=== PATIENT | male | born 1975 | race Caucasian/White ===

== ENCOUNTER 2022-08-01 18:42 | Emergency (ER) | payer OTHER ==
[2022-08-01 18:55] VITALS: RESP 18; TEMP 98.7
[2022-08-01] MEDS ORDERED: SODIUM CHLORIDE 0.9% 1,000 ML IV STA (18:59)
[2022-08-01] MEDS ORDERED: SODIUM CHLORIDE 0.9% 1,000 ML with THIAMINE 100 MG, FOLIC ACID 1 MG IV ONE ×3 (19:04)
[2022-08-01 19:12] LABS: Basophils % (A) 0 %; Eosinophils % (A) 0 %; HCT 23.1 % (39.0-53.0); Hypochromasia Slight; Lymphocytes # (A) 0.5 k/uL (1.0-4.8); Lymphocytes % (A) 7 %; MCH 40.8 pg (25.0-35.0); MCHC 34.7 g/dL (31.0-37.0); MCV 117.6 fL (80.0-100.0); Macrocytosis Marked; Mean Platelet Volume 8.6; Monocytes # (A) 0.5 k/uL (0-1.0); Monocytes % (A) 7 %; Neutrophils # (A) 5.8 k/uL (1.3-7.7); Neutrophils % (A) 82 %; Platelet Count 291 k/uL (150-450); RBC 1.96 m/uL (4.30-5.90); RDW 15.4 % (11.5-15.5)
[2022-08-01 19:25] LABS: Poikilocytosis (M) Present
[2022-08-01 19:26] LABS: Anisocytosis (M) Present; Polychromasia Present; Target Cells Present
[2022-08-01 19:27] LABS: ALT 74 U/L (4-49); AST 306 U/L (17-59); African American GFR (CKD) >90 (>60 ml/min/1.73 sqM); Albumin 2.5 g/dL (3.5-5.0); Alcohol <10 mg/dL; Alkaline Phosphatase 392 U/L (38-126); Anion Gap 15 mmol/L; Blood Urea Nitrogen 2 mg/dL (9-20); Calcium 7.3 mg/dL (8.4-10.2); Carbon Dioxide 21 mmol/L (22-30); Chloride 88 mmol/L (98-107); Glucose 94 mg/dL (74-99); Lipase 247 U/L (23-300); Non-African American GFR(CKD) >90 (>60 ml/min/1.73 sqM); Sodium 124 mmol/L (137-145); Total Protein 5.8 g/dL (6.3-8.2)
[2022-08-01] MEDS ORDERED: LORazepam 0.5 MG TAB PO PRN (19:40)
[2022-08-01] MEDS ORDERED: LORazepam 1 MG TAB PO PRN ×3 (19:40)
[2022-08-01 19:42] LABS: Potassium 2.3 mmol/L (3.5-5.1); Total Bilirubin 19.7 mg/dL (0.2-1.3)
[2022-08-01] MEDS ORDERED: POTASSIUM CHLORIDE ER 20 MEQ TAB.ER PO STA (19:58)
[2022-08-01 20:48] VITALS: BP 108/59
[2022-08-01 20:56] VITALS: PULSE 105
--- NOTE | 2022-08-01 21:00 | ED ---
Alcohol HPI - General Chief Complaint: Alcohol Stated Complaint: jaundice Time Seen by Provider: 08/01/22 18:52 Source: patient, EMS Mode of arrival: EMS Limitations: no limitations, altered mental status - History of Present Illness Initial Comments: Patient is a 46-year-old male with a history of alcohol use disorder who presents to the emergency department for evaluation of altered mental status. According to EMS patient called the police stating his house was broken into and there were 6 burglars in his house. When police arrived they apparently found this to be a hallucination and in combination with jaundice, sent the patient to the emergency department. Patient reports drinking a fifth of liquor a day, last drink early this afternoon. He denies history of hepatitis, IV drug use, exposure to blood and other bodily fluids. He denies fever, chills, abdominal pain, nausea, vomiting, diarrhea. Unsure of urine and stool color. Patient has no pain or complaints. - Related Data Previous Rx's Medication Instructions Recorded Potassium Chloride ER [K-Dur 20] 20 meq PO DAILY #14 tab 08/01/22 Allergies Allergy/AdvReac Type Severity Reaction Status Date / Time dog dander Allergy Cough Verified 08/01/22 20:12 Review of Systems ROS Statement: Those systems with pertinent positive or pertinent negative responses have been documented in the HPI. ROS Other: All systems not noted in ROS Statement are negative. Past Medical History Additional Past Medical History / Comment(s): Hernia, alcoholic, liver cirhosis History of Any Multi-Drug Resistant Organisms: None Reported Past Surgical History: Hernia Repair Past Psychological History: Anxiety, Depression Smoking Status: Current every day smoker Past Alcohol Use History: Abuse, Daily, Heavy Past Drug Use History: None Reported General Exam Limitations: no limitations, altered mental status General appearance: alert, in no apparent distress Head exam: Present: atraumatic, normocephalic, normal inspection Eye exam: Present: normal appearance, PERRL, EOMI, scleral icterus. Absent: conjunctival injection, periorbital swelling ENT exam: Present: other (tongue fasciculations) Respiratory exam: Present: normal lung sounds bilaterally. Absent: respiratory distress, wheezes, rales, rhonchi, stridor Cardiovascular Exam: Present: regular rate, normal rhythm, normal heart sounds. Absent: systolic murmur, diastolic murmur, rubs, gallop, clicks GI/Abdominal exam: Present: soft, normal bowel sounds. Absent: distended, tend erness, guarding, rebound, rigid Extremities exam: Present: other (significant hand tremors) Neurological exam: Present: alert, oriented X3, CN II-XII intact Psychiatric exam: Present: normal affect, normal mood Skin exam: Present: warm, dry, intact. Absent: normal color (severe jaundice ), rash Course Vital Signs 08/01/22 08/01/22 08/01/22 18:49 20:25 20:47 Temperature 98.7 F Pulse Rate 90 105 H Respiratory 18 18 Rate Blood Pressure 109/80 108/59 O2 Sat by Pulse 99 Oximetry Medical Decision Making - Medical Decision Making This is a 46-year-old male presenting or altered mental status and jaundice. Patient alert and oriented 3. No active hallucinations during my evaluation. Patient severely jaundiced with scleral icterus. No abdominal tenderness. Patient in alcohol withdrawal at significant bilateral hand tremors and tongue fasciculations. Vitals are within acceptable limits. Hemoglobin is low at 8.0, no previous for comparison. Potassium critically low at 2.3. Total bilirubin is significantly high at 19.7. Liver function enzymes are elevated, AST of 306, ALT of 74, alk phos at 392. Serum alcohol is 0. Urinalysis is dark brown in color and reveals 4+ bilirubin. CIWA score is 8. Ativan given. Patient given banana bag. Potassium replenished. Case discussed with Dr. Olsen who declined admission to 2 GI services. Discussed transfer with patient in detail. Patient declines. States he has to go home. I urged patient to stay, discussing risks of hypokalemia and acute liver failure. Patient aware risks and adamant on going home. Patient signed AMA form. He will be discharged with potassium and GI referral. Dr. Benedict is my attending. - Lab Data Result diagrams: 08/01/22 19:04 08/01/22 19:04 Lab Results 08/01/22 08/01/22 08/01/22 Range/Units 19:04 19:04 19:04 WBC 7.0 (3.8-10.6) k/uL RBC 1.96 L (4.30-5.90) m/uL Hgb 8.0 L (13.0-17.5) gm/dL Hct 23.1 L (39.0-53.0) % MCV 117.6 H (80.0-100.0) fL MCH 40.8 H (25.0-35.0) pg MCHC 34.7 (31.0-37.0) g/dL RDW 15.4 (11.5-15.5) % Plt Count 291 (150-450) k/uL MPV 8.6 Neutrophils % 82 % Lymphocytes % 7 % Monocytes % 7 % Eosinophils % 0 % Basophils % 0 % Neutrophils # 5.8 (1.3-7.7) k/uL Lymphocytes # 0.5 L (1.0-4.8) k/uL Monocytes # 0.5 (0-1.0) k/uL Eosinophils # 0.0 (0-0.7) k/uL Basophils # 0.0 (0-0.2) k/uL Polychromasia Present Hypochromasia Slight Poikilocytosis (manual Present Anisocytosis (manual) Present Macrocytosis Marked A Target Cells Present Sodium 124 L (137-145) mmol/L Potassium 2.3 L* (3.5-5.1) mmol/L Chloride 88 L (98-107) mmol/L Carbon Dioxide 21 L (22-30) mmol/L Anion Gap 15 mmol/L BUN 2 L (9-20) mg/dL Creatinine 0.69 (0.66-1.25) mg/dL Est GFR (CKD-EPI)AfAm >90 (>60 ml/min/1.73 sqM) Est GFR (CKD-EPI)NonAf >90 (>60 ml/min/1.73 sqM) Glucose 94 (74-99) mg/dL Calcium 7.3 L (8.4-10.2) mg/dL Total Bilirubin 19.7 H* (0.2-1.3) mg/dL AST 306 H (17-59) U/L ALT 74 H (4-49) U/L Alkaline Phosphatase 392 H (38-126) U/L Ammonia 27 (<30) umol/L Total Protein 5.8 L (6.3-8.2) g/dL Albumin 2.5 L (3.5-5.0) g/dL Lipase 247 (23-300) U/L Urine Color Urine Appearance (Clear) Urine pH (5.0-8.0) Ur Specific [place] (1.001-1.035) Urine Protein (Negative) Urine Glucose (UA) (Negative) Urine Ketones (Negative) Urine Blood (Negative) Urine Nitrite (Negative) Urine Bilirubin (Negative) Urine Urobilinogen (<2.0) mg/dL Ur Leukocyte Esterase (Negative) Urine RBC (0-5) /hpf Urine WBC (0-5) /hpf Ur Squamous Epith Cells (0-4) /hpf Ur Renal Epithelial Cell (0) /hpf Urine Bacteria (None) /hpf Hyaline Casts (0-2) /lpf Urine Mucus (None) /hpf Ur Oval Fat Bodies (None) /hpf Urine Opiates Screen (NotDetected) Ur Oxycodone Screen (NotDetected) Urine Methadone Screen (NotDetected) Ur Propoxyphene Screen (NotDetected) Ur Barbiturates Screen (NotDetected) U Tricyclic Antidepress (NotDetected) Ur Phencyclidine Scrn (NotDetected) Ur Amphetamines Screen (NotDetected) U Methamphetamines Scrn (NotDetected) U Benzodiazepines Scrn (NotDetected) Urine Cocaine Screen (NotDetected) U Marijuana (THC) Screen (NotDetected) Serum Alcohol <10 mg/dL 08/01/22 Range/Units 20:30 WBC (3.8-10.6) k/uL RBC (4.30-5.90) m/uL Hgb (13.0-17.5) gm/dL Hct (39.0-53.0) % MCV (80.0-100.0) fL MCH (25.0-35.0) pg MCHC (31.0-37.0) g/dL RDW (11.5-15.5) % Plt Count (150-450) k/uL MPV Neutrophils % % Lymphocytes % % Monocytes % % Eosinophils % % Basophils % % Neutrophils # (1.3-7.7) k/uL Lymphocytes # (1.0-4.8) k/uL Monocytes # (0-1.0) k/uL Eosinophils # (0-0.7) k/uL Basophils # (0-0.2) k/uL Polychromasia Hypochromasia Poikilocytosis (manual Anisocytosis (manual) Macrocytosis Target Cells Sodium (137-145) mmol/L Potassium (3.5-5.1) mmol/L Chloride (98-107) mmol/L Carbon Dioxide (22-30) mmol/L Anion Gap mmol/L BUN (9-20) mg/dL Creatinine (0.66-1.25) mg/dL Est GFR (CKD-EPI)AfAm (>60 ml/min/1.73 sqM) Est GFR (CKD-EPI)NonAf (>60 ml/min/1.73 sqM) Glucose (74-99) mg/dL Calcium (8.4-10.2) mg/dL Total Bilirubin (0.2-1.3) mg/dL AST (17-59) U/L ALT (4-49) U/L Alkaline Phosphatase (38-126) U/L Ammonia (<30) umol/L Total Protein (6.3-8.2) g/dL Albumin (3.5-5.0) g/dL Lipase (23-300) U/L Urine Color Dark Brown Urine Appearance Cloudy (Clear) Urine pH 6.5 (5.0-8.0) Ur Specific [place] 1.010 (1.001-1.035) Urine Protein Trace H (Negative) Urine Glucose (UA) Negative (Negative) Urine Ketones Negative (Negative) Urine Blood Negative (Negative) Urine Nitrite Negative (Negative) Urine Bilirubin 4+ H (Negative) Urine Urobilinogen 3.0 (<2.0) mg/dL Ur Leukocyte Esterase Negative (Negative) Urine RBC 1 (0-5) /hpf Urine WBC 16 H (0-5) /hpf Ur Squamous Epith Cells 3 (0-4) /hpf Ur Renal Epithelial Cell 7 (0) /hpf Urine Bacteria Rare H (None) /hpf Hyaline Casts 23 H (0-2) /lpf Urine Mucus Rare H (None) /hpf Ur Oval Fat Bodies Rare H (None) /hpf Urine Opiates Screen Not Detected (NotDetected) Ur Oxycodone Screen Not Detected (NotDetected) Urine Methadone Screen Not Detected (NotDetected) Ur Propoxyphene Screen Not Detected (NotDetected) Ur Barbiturates Screen Not Detected (NotDetected) U Tricyclic Antidepress Not Detected (NotDetected) Ur Phencyclidine Scrn Not Detected (NotDetected) Ur Amphetamines Screen Not Detected (NotDetected) U Methamphetamines Scrn Not Detected (NotDetected) U Benzodiazepines Scrn Not Detected (NotDetected) Urine Cocaine Screen Not Detected (NotDetected) U Marijuana (THC) Screen Not Detected (NotDetected) Serum Alcohol mg/dL Disposition Clinical Impression: Jaundice, Alcohol use disorder, Alcohol withdrawal, Confusion, Hypokalemia Disposition: Left Against Medical Advice Condition: Poor Instructions (If sedation given, give patient instructions): Acute Liver Failure (DC), Hypokalemia (ED), Alcohol Withdrawal (ED) Additional Instructions: You are leaving against Medical advice. Take medication as directed. Follow-up with GI specialist in 1-2 days. It is very important to stop drinking alcohol as it is causing extreme liver dysfunction. I referred you to [facility] who can help you quit at this can be difficult task on your own. Return to the emergency department if you experience new, concerning, or worsening symptoms. Prescriptions: Potassium Chloride ER [K-Dur 20] 20 meq PO DAILY #14 tab Is patient prescribed a controlled substance at d/c from ED?: No Referrals: None,Stated [Primary Care Provider] - 1-2 days Deandra Everett MD [STAFF PHYSICIAN] - 1-2 days Time of Disposition: 21:01
[2022-08-01 21:24] LABS: Appearance,Urine Cloudy (Clear); Bacteria,Urine Rare /hpf; Bilirubin,Urine 4+ (Negative); Blood,Urine Negative (Negative); Color,Urine Dark Brown; Glucose,Urine (UA) Negative (Negative); Hyaline Casts,Urine 23 /lpf (0-2); Ketones,Urine Negative (Negative); Leukocyte Esterase,Urine Negative (Negative); Mucus,Urine Rare /hpf; Nitrite,Urine Negative (Negative); Oval Fat Bodies,Urine Rare /hpf; PH, Urine 6.5 (5.0-8.0); Protein,Urine Trace (Negative); RBC,Urine 1 /hpf (0-5); Renal Epithelial Cells,Urine 7 /hpf (0); Squamous Epithelial Cell,Urine 3 /hpf (0-4); WBC,Urine 16 /hpf (0-5)
[2022-08-01 21:27] LABS: Amphetamine Screen,Urine Not Detected (NotDetected); Barbiturate Screen,Urine Not Detected (NotDetected); Benzodiazepines Screen,Urine Not Detected (NotDetected); Cocaine Screen,Urine Not Detected (NotDetected); Methadone Screen, Urine Not Detected (NotDetected); Opiate Screen,Urine Not Detected (NotDetected); Oxycodone Screen, Urine Not Detected (NotDetected); Phencyclidine Screen,Urine Not Detected (NotDetected); Tricyclic Antidepressant,Urine Not Detected (NotDetected); Urn Cannabinoid Scrn Not Detected (NotDetected)
== END 2022-08-01 20:33 | disposition left against medical advice (07) ==
LOC: EC 18:42
DX: R17 Unspecified jaundice (principal); F10.10 Alcohol abuse, uncomplicated; J30.81 Allergic rhinitis due to animal (cat) (dog) hair and dander; R41.0 Disorientation, unspecified; E87.6 Hypokalemia; Z53.29 Procedure and treatment not carried out because of patient's decision for other reasons; F41.9 Anxiety disorder, unspecified; F32.A Depression, unspecified; F17.200 Nicotine dependence, unspecified, uncomplicated; Z79.899 Other long term (current) drug therapy
CPT/HCPCS: 36415; 80053; 80306; 80320; 81001; 82140; 83690; 85025; 87086; 96360; 99285

== ENCOUNTER 2022-08-02 16:48 | Inpatient (IN) | payer OTHER ==
[2022-08-02] MEDS ORDERED: SODIUM CHLORIDE 0.9% 500 ML 500 ML IV ONE (16:57)
[2022-08-02] MEDS ORDERED: LORazepam 2 MG/ML INJ IV STA (17:37)
[2022-08-02 18:02] LABS: Basophils % (A) 0 %; Eosinophils % (A) 0 %; HCT 22.5 % (39.0-53.0); HGB 7.7 gm/dL (13.0-17.5); Hypochromasia Slight; Lymphocytes # (A) 0.6 k/uL (1.0-4.8); Lymphocytes % (A) 7 %; MCH 40.5 pg (25.0-35.0); MCV 119.4 fL (80.0-100.0); Mean Platelet Volume 9.1; Monocytes # (A) 0.6 k/uL (0-1.0); Monocytes % (A) 7 %; Neutrophils # (A) 6.7 k/uL (1.3-7.7); Neutrophils % (A) 81 %; Platelet Count 315 k/uL (150-450); RBC 1.89 m/uL (4.30-5.90); RDW 15.9 % (11.5-15.5); WBC 8.3 k/uL (3.8-10.6)
[2022-08-02 18:03] LABS: Macrocytosis Marked
[2022-08-02 18:04] LABS: ALT 80 U/L (4-49); AST 331 U/L (17-59); African American GFR (CKD) >90 (>60 ml/min/1.73 sqM); Albumin 2.5 g/dL (3.5-5.0); Alkaline Phosphatase 371 U/L (38-126); Anion Gap 15 mmol/L; Blood Urea Nitrogen 9 mg/dL (9-20); Calcium 7.4 mg/dL (8.4-10.2); Carbon Dioxide 21 mmol/L (22-30); Chloride 90 mmol/L (98-107); Non-African American GFR(CKD) 88 (>60 ml/min/1.73 sqM); Potassium 2.9 mmol/L (3.5-5.1); Sodium 126 mmol/L (137-145)
[2022-08-02 18:11] LABS: Glucose 48 mg/dL (74-99); Total Bilirubin 21.4 mg/dL (0.2-1.3); Total Protein 5.9 g/dL (6.3-8.2)
[2022-08-02] MEDS ORDERED: DEXTROSE 50% SYRINGE 50 ML IVP STA (18:15)
[2022-08-02 18:16] LABS: INR 2.1 (<1.2); Partial Thromboplastin Time 42.4 sec (22.0-30.0); Prothrombin Time 20.7 sec (9.0-12.0)
[2022-08-02 18:35] LABS: Glucose,Whole Blood 160 mg/dL (70-110)
--- NOTE | 2022-08-02 19:06 | ED ---
Altered Mental Status HPI - General Chief Complaint: Altered Mental Status Stated Complaint: AMS, jaundice Time Seen by Provider: 08/02/22 16:50 Source: EMS Mode of arrival: EMS Limitations: altered mental status - History of Present Illness Initial Comments: 's patient is a 46-year-old man brought by ambulance to have evaluation for altered mental status. Ambulance reportedly called by friends. Patient not able to give any history. He had been seen here at the emergency department yesterday and reportedly signed out AGAINST MEDICAL ADVICE. Patient's reported to have history of heavy alcohol use and reported yesterday to have been found with evidence of liver failure. On arrival, patient is unable to give any useful history as he does appear to be delirious. MD Complaint: altered mental status -: days(s) Severity: severe Consistency of Symptoms: unknown - Related Data Previous Rx's Medication Instructions Recorded Potassium Chloride ER [K-Dur 20] 20 meq PO DAILY #14 tab 08/01/22 Folic Acid 1 mg PO DAILY #30 tab 08/05/22 Lactulose [Cephulac] 10 gm PO TID #30 ml 08/05/22 Multivitamins, Thera [Multivitamin 1 each PO DAILY #30 tab 08/05/22 (formulary)] Pantoprazole [Protonix] 40 mg PO DAILY #30 tab 08/05/22 Thiamine [Vitamin B-1] 100 mg PO DAILY #30 tab 08/05/22 prednisoLONE ORAL 15MG/5ML LUIS 40 mg PO DAILY 26 Days #350 ml 08/05/22 [Prelone] Allergies Allergy/AdvReac Type Severity Reaction Status Date / Time dog dander Allergy Cough Verified 08/02/22 17:59 Review of Systems ROS Statement: Those systems with pertinent positive or pertinent negative responses have been documented in the HPI. ROS Other: All systems not noted in ROS Statement are negative. Limitations: ROS unobtainable due to patients medical condition Past Medical History Additional Past Medical History / Comment(s): Hernia, alcoholic, liver cirhosis History of Any Multi-Drug Resistant Organisms: None Reported Past Surgical History: Hernia Repair Past Psychological History: Anxiety, Depression Smoking Status: Current every day smoker Past Alcohol Use History: Abuse, Daily, Heavy Past Drug Use History: None Reported General Exam Limitations: altered mental status General appearance: alert, anxious Head exam: Present: atraumatic, normocephalic Eye exam: Present: normal appearance, PERRL, EOMI, scleral icterus. Absent: conjunctival injection, nystagmus ENT exam: Present: normal oropharynx Neck exam: Present: normal inspection, full ROM. Absent: tenderness, meningismus Respiratory exam: Present: normal lung sounds bilaterally. Absent: respiratory distress, wheezes, rales, rhonchi, stridor, accessory muscle use Cardiovascular Exam: Present: regular rate, normal rhythm, normal heart sounds. Absent: systolic murmur, diastolic murmur, rubs, gallop GI/Abdominal exam: Present: soft. Absent: distended, tenderness, guarding, rebound, rigid, mass Extremities exam: Present: normal inspection, normal capillary refill. Absent: pedal edema, calf tenderness Back exam: Present: normal inspection. Absent: CVA tenderness (R), CVA tenderness (L) Neurological exam: Present: altered, CN II-XII intact. Absent: motor sensory deficit Skin exam: Present: warm, dry, intact, other (Jaundice) Course Vital Signs 08/02/22 08/02/22 08/02/22 17:04 17:07 18:00 Temperature 98.1 F Pulse Rate 93 Pulse Rate [ Environmental Analyst ] Pulse Rate [ Pulse Oximetery ] Respiratory 20 20 18 Rate Blood Pressure 88/70 88/70 94/70 Blood Pressure [Left Arm] O2 Sat by Pulse 98 86 L Oximetry 08/02/22 08/02/22 08/02/22 18:30 19:52 22:13 Temperature Pulse Rate 88 88 73 Pulse Rate [ Environmental Analyst ] Pulse Rate [ Pulse Oximetery ] Respiratory 18 22 18 Rate Blood Pressure 116/106 117/82 100/69 Blood Pressure [Left Arm] O2 Sat by Pulse 95 98 95 Oximetry 08/03/22 08/03/22 08/03/22 00:46 03:36 05:44 Temperature 98.5 F Pulse Rate 85 78 86 Pulse Rate [ Environmental Analyst ] Pulse Rate [ Pulse Oximetery ] Respiratory 22 16 15 Rate Blood Pressure 155/86 111/77 98/56 Blood Pressure [Left Arm] O2 Sat by Pulse 95 95 98 Oximetry 08/03/22 08/03/22 08/03/22 06:29 07:42 09:50 Temperature 98.4 F Pulse Rate 86 83 74 Pulse Rate [ Environmental Analyst ] Pulse Rate [ Pulse Oximetery ] Respiratory 18 18 18 Rate Blood Pressure 100/62 93/65 101/68 Blood Pressure [Left Arm] O2 Sat by Pulse 96 95 96 Oximetry 08/03/22 08/03/22 08/03/22 12:00 15:46 19:04 Temperature 98.4 F Pulse Rate 88 Pulse Rate [ 77 Environmental Analyst ] Pulse Rate [ 101 H Pulse Oximetery ] Respiratory 18 16 20 Rate Blood Pressure 108/62 Blood Pressure 103/78 100/69 [Left Arm] O2 Sat by Pulse 96 94 L Oximetry Medical Decision Making - Medical Decision Making Patient's 46-year-old man brought in for altered mental status. On arrival patient found to be hypotensive, given IV fluids. Patient also hypoglycemic given dextrose. Patient's vital signs have improved such that he may not require ICU admission. Patient is more alert however still delirious at times. We'll admit with CIWA protocol. Patient prognosis very guarded. - Lab Data Result diagrams: 08/04/22 10:08/05/22 07:49 Lab Results 08/02/22 08/02/22 08/02/22 Range/Units 17:00 17:00 17:00 WBC 8.3 (3.8-10.6) k/uL RBC 1.89 L (4.30-5.90) m/uL Hgb 7.7 L (13.0-17.5) gm/dL Hct 22.5 L (39.0-53.0) % MCV 119.4 H (80.0-100.0) fL MCH 40.5 H (25.0-35.0) pg MCHC 34.0 (31.0-37.0) g/dL RDW 15.9 H (11.5-15.5) % Plt Count 315 (150-450) k/uL MPV 9.1 Neutrophils % 81 % Lymphocytes % 7 % Monocytes % 7 % Eosinophils % 0 % Basophils % 0 % Neutrophils # 6.7 (1.3-7.7) k/uL Lymphocytes # 0.6 L (1.0-4.8) k/uL Monocytes # 0.6 (0-1.0) k/uL Eosinophils # 0.0 (0-0.7) k/uL Basophils # 0.0 (0-0.2) k/uL Hypochromasia Slight Macrocytosis Marked A PT 20.7 H (9.0-12.0) sec INR 2.1 H (<1.2) APTT 42.4 H (22.0-30.0) sec Sodium 126 L (137-145) mmol/L Potassium 2.9 L (3.5-5.1) mmol/L Chloride 90 L (98-107) mmol/L Carbon Dioxide 21 L (22-30) mmol/L Anion Gap 15 mmol/L BUN 9 (9-20) mg/dL Creatinine 1.03 (0.66-1.25) mg/dL Est GFR (CKD-EPI)AfAm >90 (>60 ml/min/1.73 sqM) Est GFR (CKD-EPI)NonAf 88 (>60 ml/min/1.73 sqM) Glucose 48 L* (74-99) mg/dL POC Glucose (mg/dL) (70-110) mg/dL POC Glu Manager Pmo ID Calcium 7.4 L (8.4-10.2) mg/dL Total Bilirubin 21.4 H* (0.2-1.3) mg/dL AST 331 H (17-59) U/L ALT 80 H (4-49) U/L Alkaline Phosphatase 371 H (38-126) U/L Ammonia (<30) umol/L Troponin I (0.000-0.034) ng/mL Total Protein 5.9 L (6.3-8.2) g/dL Albumin 2.5 L (3.5-5.0) g/dL Urine Color Urine Appearance (Clear) Urine pH (5.0-8.0) Ur Specific [place] (1.001-1.035) Urine Protein (Negative) Urine Glucose (UA) (Negative) Urine Ketones (Negative) Urine Blood (Negative) Urine Nitrite (Negative) Urine Bilirubin (Negative) Urine Urobilinogen (<2.0) mg/dL Ur Leukocyte Esterase (Negative) Urine Opiates Screen (NotDetected) Ur Oxycodone Screen (NotDetected) Urine Methadone Screen (NotDetected) Ur Propoxyphene Screen (NotDetected) Ur Barbiturates Screen (NotDetected) U Tricyclic Antidepress (NotDetected) Ur Phencyclidine Scrn (NotDetected) Ur Amphetamines Screen (NotDetected) U Methamphetamines Scrn (NotDetected) U Benzodiazepines Scrn (NotDetected) Urine Cocaine Screen (NotDetected) U Marijuana (THC) Screen (NotDetected) Serum Alcohol mg/dL 08/02/22 08/02/22 08/02/22 Range/Units 17:00 17:00 17:00 WBC (3.8-10.6) k/uL RBC (4.30-5.90) m/uL Hgb (13.0-17.5) gm/dL Hct (39.0-53.0) % MCV (80.0-100.0) fL MCH (25.0-35.0) pg MCHC (31.0-37.0) g/dL RDW (11.5-15.5) % Plt Count (150-450) k/uL MPV Neutrophils % % Lymphocytes % % Monocytes % % Eosinophils % % Basophils % % Neutrophils # (1.3-7.7) k/uL Lymphocytes # (1.0-4.8) k/uL Monocytes # (0-1.0) k/uL Eosinophils # (0-0.7) k/uL Basophils # (0-0.2) k/uL Hypochromasia Macrocytosis PT (9.0-12.0) sec INR (<1.2) APTT (22.0-30.0) sec Sodium (137-145) mmol/L Potassium (3.5-5.1) mmol/L Chloride (98-107) mmol/L Carbon Dioxide (22-30) mmol/L Anion Gap mmol/L BUN (9-20) mg/dL Creatinine (0.66-1.25) mg/dL Est GFR (CKD-EPI)AfAm (>60 ml/min/1.73 sqM) Est GFR (CKD-EPI)NonAf (>60 ml/min/1.73 sqM) Glucose (74-99) mg/dL POC Glucose (mg/dL) (70-110) mg/dL POC Glu Manager Pmo ID Calcium (8.4-10.2) mg/dL Total Bilirubin (0.2-1.3) mg/dL AST (17-59) U/L ALT (4-49) U/L Alkaline Phosphatase (38-126) U/L Ammonia 34 H (<30) umol/L Troponin I <0.012 (0.000-0.034) ng/mL Total Protein (6.3-8.2) g/dL Albumin (3.5-5.0) g/dL Urine Color Urine Appearance (Clear) Urine pH (5.0-8.0) Ur Specific [place] (1.001-1.035) Urine Protein (Negative) Urine Glucose (UA) (Negative) Urine Ketones (Negative) Urine Blood (Negative) Urine Nitrite (Negative) Urine Bilirubin (Negative) Urine Urobilinogen (<2.0) mg/dL Ur Leukocyte Esterase (Negative) Urine Opiates Screen (NotDetected) Ur Oxycodone Screen (NotDetected) Urine Methadone Screen (NotDetected) Ur Propoxyphene Screen (NotDetected) Ur Barbiturates Screen (NotDetected) U Tricyclic Antidepress (NotDetected) Ur Phencyclidine Scrn (NotDetected) Ur Amphetamines Screen (NotDetected) U Methamphetamines Scrn (NotDetected) U Benzodiazepines Scrn (NotDetected) Urine Cocaine Screen (NotDetected) U Marijuana (THC) Screen (NotDetected) Serum Alcohol <10 mg/dL 08/02/22 08/02/22 08/02/22 Range/Units 18:34 19:51 21:30 WBC (3.8-10.6) k/uL RBC (4.30-5.90) m/uL Hgb (13.0-17.5) gm/dL Hct (39.0-53.0) % MCV (80.0-100.0) fL MCH (25.0-35.0) pg MCHC (31.0-37.0) g/dL RDW (11.5-15.5) % Plt Count (150-450) k/uL MPV Neutrophils % % Lymphocytes % % Monocytes % % Eosinophils % % Basophils % % Neutrophils # (1.3-7.7) k/uL Lymphocytes # (1.0-4.8) k/uL Monocytes # (0-1.0) k/uL Eosinophils # (0-0.7) k/uL Basophils # (0-0.2) k/uL Hypochromasia Macrocytosis PT (9.0-12.0) sec INR (<1.2) APTT (22.0-30.0) sec Sodium (137-145) mmol/L Potassium (3.5-5.1) mmol/L Chloride (98-107) mmol/L Carbon Dioxide (22-30) mmol/L Anion Gap mmol/L BUN (9-20) mg/dL Creatinine (0.66-1.25) mg/dL Est GFR (CKD-EPI)AfAm (>60 ml/min/1.73 sqM) Est GFR (CKD-EPI)NonAf (>60 ml/min/1.73 sqM) Glucose (74-99) mg/dL POC Glucose (mg/dL) 160 H 89 (70-110) mg/dL POC Glu Manager Pmo ID Emerson Guerrero Kaitlyn Calcium (8.4-10.2) mg/dL Total Bilirubin (0.2-1.3) mg/dL AST (17-59) U/L ALT (4-49) U/L Alkaline Phosphatase (38-126) U/L Ammonia (<30) umol/L Troponin I (0.000-0.034) ng/mL Total Protein (6.3-8.2) g/dL Albumin (3.5-5.0) g/dL Urine Color Dark Yellow Urine Appearance Clear (Clear) Urine pH 6.5 (5.0-8.0) Ur Specific [place] 1.003 (1.001-1.035) Urine Protein Negative (Negative) Urine Glucose (UA) Negative (Negative) Urine Ketones Negative (Negative) Urine Blood Negative (Negative) Urine Nitrite Negative (Negative) Urine Bilirubin 3+ H (Negative) Urine Urobilinogen <2.0 (<2.0) mg/dL Ur Leukocyte Esterase Negative (Negative) Urine Opiates Screen Not Detected (NotDetected) Ur Oxycodone Screen Not Detected (NotDetected) Urine Methadone Screen Not Detected (NotDetected) Ur Propoxyphene Screen Not Detected (NotDetected) Ur Barbiturates Screen Not Detected (NotDetected) U Tricyclic Antidepress Not Detected (NotDetected) Ur Phencyclidine Scrn Not Detected (NotDetected) Ur Amphetamines Screen Not Detected (NotDetected) U Methamphetamines Scrn Not Detected (NotDetected) U Benzodiazepines Scrn Not Detected (NotDetected) Urine Cocaine Screen Not Detected (NotDetected) U Marijuana (THC) Screen Not Detected (NotDetected) Serum Alcohol mg/dL - EKG Data -: EKG Interpreted by Me EKG shows normal: sinus rhythm, axis, intervals Rate: normal (Rate 89 bpm) Disposition Clinical Impression: Hypokalemia, Jaundice, Acute liver failure, Delirium due to general medical condition Disposition: ADMITTED IP TO THIS HOSP Condition: Stable
--- NOTE | 2022-08-02 19:09 | XR ---
EXAMINATION TYPE: XR chest 1V portable DATE OF EXAM: 08/02/2022 COMPARISON: NONE HISTORY: Altered mental status TECHNIQUE: Single view FINDINGS: There is coarsening of interstitial markings. Heart size is normal. There are no hilar mass es. There are chest leads. Costophrenic angles are clear. IMPRESSION: No active cardiopulmonary disease. Mild pulmonary fibrosis.
[2022-08-02 19:52] LABS: Glucose,Whole Blood 89 mg/dL (70-110)
--- NOTE | 2022-08-02 19:59 | CT ---
EXAMINATION TYPE: CT brain wo con DATE OF EXAM: 08/02/2022 COMPARISON: None HISTORY: AMS CT DLP: 1261.4 mGycm Automated exposure control for dose reduction was used. Images obtained of the brain with no contrast. There is no mass effect or midline shift. No sign of intracranial hemorrhage. Calvarium is intact. Th ere is normal aeration of the mastoid sinuses. There is mucosal thickening in the maxillary sinuses. IMPRESSION: Negative CT scan of the brain. Maxillary sinusitis.
[2022-08-02 21:43] LABS: Appearance,Urine Clear (Clear); Bilirubin,Urine 3+ (Negative); Blood,Urine Negative (Negative); Color,Urine Dark Yellow; Glucose,Urine (UA) Negative (Negative); Ketones,Urine Negative (Negative); Leukocyte Esterase,Urine Negative (Negative); Nitrite,Urine Negative (Negative); PH, Urine 6.5 (5.0-8.0); Protein,Urine Negative (Negative); Specific Gravity,Urine 1.003 (1.001-1.035); Urobilinogen,Urine <2.0 mg/dL (<2.0)
[2022-08-02] MEDS ORDERED: NALOXONE 0.4 MG/ML 1 ML VIAL IV PRN (22:02)
[2022-08-02] MEDS ORDERED: POTASSIUM CHLORIDE ER 20 MEQ TAB.ER PO STA (22:05)
[2022-08-02 22:07] LABS: Amphetamine Screen,Urine Not Detected (NotDetected); Barbiturate Screen,Urine Not Detected (NotDetected); Benzodiazepines Screen,Urine Not Detected (NotDetected); Cocaine Screen,Urine Not Detected (NotDetected); Methadone Screen, Urine Not Detected (NotDetected); Opiate Screen,Urine Not Detected (NotDetected); Oxycodone Screen, Urine Not Detected (NotDetected); Phencyclidine Screen,Urine Not Detected (NotDetected); Tricyclic Antidepressant,Urine Not Detected (NotDetected); Urn Cannabinoid Scrn Not Detected (NotDetected)
[2022-08-02 22:11] LABS: Glucose,Whole Blood 79 mg/dL (70-110)
[2022-08-02] MEDS: SODIUM CHLORIDE 0.9% 1,000 ML IV SCH (22:59)
--- NOTE | 2022-08-03 00:35 | P.HPIM ---
History of Present Illness H&P Date: 08/02/22 The patient is a 46-year-old male with a PMH of alcohol abuse who was brought into the emergency room by EMS for altered mental status. History was obtained from ED physician and from the chart as the patient was altered at the time of interview. The patient reportedly has a history of alcohol abuse and had also presented to the emergency room yesterday where he left AGAINST MEDICAL ADVICE. The patient states that she drinks hard liquor daily but was lethargic and also agitated at the time of interview and did not answer questions appropriately. The patient states that he has been drinking alcohol for most of his life, and would not elucidate when was his last drink. CT reviewed emergency was unremarkable with chest x-ray showing mild pulmonary fibrosis with no acute abnormalities. EKG revealed sinus rhythm with PVCs at 89 bpm with T-wave inversion in lead V2. Laboratory evaluation was remarkable for hemoglobin 7.7, MCV 119, sodium 126, potassium 2.9, glucose 48, total bilirubin 21.4, AST 331, ALT 80, alk phos 371, and troponin less than 0.012 with serum alcohol level less than 10 with urine toxicology negative. Review of systems: Unable to obtain due to mental status Physical examination: General: Disheveled jaundiced male, no distress, appears at stated age, normal weight Derm: no unusual rashes/lesions, warm Head: atraumatic, normocephalic, symmetric Eyes: EOMI, no lid lag, scleral icterus noted, pupils equal round reactive to light ENT: Nose and ears atraumatic Neck: No cervical lymphadenopathy, trachea midline, supple Mouth: no lip lesion, mucus membranes moist Cardiovascular: S1S2 reg, no murmur, positive dorsalis pedis pulse bilateral, no edema Lungs: CTA bilateral, no rhonchi, no rales, no accessory muscle use Abdominal: soft, nontender to palpation, no guarding Ext: muscle strength 4 out of 5 in all 4 extremities grossly, no gross muscle atrophy, no contractures, Neuro: no gross focal neuro deficits Psych: Lethargic, oriented to person and place, not oriented to time, not answering questions appropriately Assessment/plan Alcoholic hepatitis -Maddrey's score: 72 -Initiate prednisone 40 mg by mouth daily -IV fluids -Monitor LFTs Alcohol abuse with impending withdrawal -[facility] Protocol -Thiamine, multivitamin -Check B12 and folate levels -IV fluids -Monitor electrolytes -Fall, seizure, aspiration precautions Hypokalemia -Replace and monitor Hypovolemic hyponatremia -Likely due to poor oral intake -IV fluids Macrocytic anemia -Check B12 and folate levels -Likely due to ongoing EtOH abuse DVT prophylaxis -Heparin subcu The patient is admitted with an anticipated greater than 2 midnight stay for evaluation of alcoholic hepatitis. CODE STATUS: Full Code Discussed with: Patient Anticipated discharge date: 3-[address]: Home Past Medical History Additional Past Medical History / Comment(s): Hernia, alcoholic, liver cirhosis History of Any Multi-Drug Resistant Organisms: None Reported Past Surgical History: Hernia Repair Past Psychological History: Unable to Obtain (Unable to obtain due to mental status), Anxiety, Depression Smoking Status: Current every day smoker Past Alcohol Use History: Abuse, Daily, Heavy Past Drug Use History: None Reported Medications and Allergies Home Medications Medication Instructions Recorded Confirmed Type Potassium Chloride ER [K-Dur 20] 20 meq PO DAILY #14 tab 08/01/22 08/02/22 Rx Allergies Allergy/AdvReac Type Severity Reaction Status Date / Time dog dander Allergy Cough Verified 08/02/22 17:59 Physical Exam Vitals: Vital Signs Temp Pulse Resp BP Pulse Ox 08/02/22 22:13 73 18 100/69 95 08/02/22 19:52 88 22 117/82 98 08/02/22 18:30 88 18 116/106 95 08/02/22 18:00 18 94/70 86 L 08/02/22 17:07 98.1 F 93 20 88/70 98 08/02/22 17:04 20 88/70 Intake and Output 08/02/22 08/02/22 08/03/22 14:59 22:59 06:59 Other: Weight 72.575 kg Results CBC & Chem 7: 08/02/22 17:00 08/02/22 17:00 Labs: Abnormal Lab Results - Last 24 Hours (Table) 08/02/22 08/02/22 08/02/22 Range/Units 17:00 17:00 17:00 RBC 1.89 L (4.30-5.90) m/uL Hgb 7.7 L (13.0-17.5) gm/dL Hct 22.5 L (39.0-53.0) % MCV 119.4 H (80.0-100.0) fL MCH 40.5 H (25.0-35.0) pg RDW 15.9 H (11.5-15.5) % Lymphocytes # 0.6 L (1.0-4.8) k/uL Macrocytosis Marked A PT 20.7 H (9.0-12.0) sec INR 2.1 H (<1.2) APTT 42.4 H (22.0-30.0) sec Sodium 126 L (137-145) mmol/L Potassium 2.9 L (3.5-5.1) mmol/L Chloride 90 L (98-107) mmol/L Carbon Dioxide 21 L (22-30) mmol/L Glucose 48 L* (74-99) mg/dL POC Glucose (mg/dL) (70-110) mg/dL Calcium 7.4 L (8.4-10.2) mg/dL Total Bilirubin 21.4 H* (0.2-1.3) mg/dL AST 331 H (17-59) U/L ALT 80 H (4-49) U/L Alkaline Phosphatase 371 H (38-126) U/L Ammonia (<30) umol/L Total Protein 5.9 L (6.3-8.2) g/dL Albumin 2.5 L (3.5-5.0) g/dL Urine Bilirubin (Negative) 08/02/22 08/02/22 08/02/22 Range/Units 17:00 18:34 21:30 RBC (4.30-5.90) m/uL Hgb (13.0-17.5) gm/dL Hct (39.0-53.0) % MCV (80.0-100.0) fL MCH (25.0-35.0) pg RDW (11.5-15.5) % Lymphocytes # (1.0-4.8) k/uL Macrocytosis PT (9.0-12.0) sec INR (<1.2) APTT (22.0-30.0) sec Sodium (137-145) mmol/L Potassium (3.5-5.1) mmol/L Chloride (98-107) mmol/L Carbon Dioxide (22-30) mmol/L Glucose (74-99) mg/dL POC Glucose (mg/dL) 160 H (70-110) mg/dL Calcium (8.4-10.2) mg/dL Total Bilirubin (0.2-1.3) mg/dL AST (17-59) U/L ALT (4-49) U/L Alkaline Phosphatase (38-126) U/L Ammonia 34 H (<30) umol/L Total Protein (6.3-8.2) g/dL Albumin (3.5-5.0) g/dL Urine Bilirubin 3+ H (Negative)
[2022-08-03] MEDS ORDERED: THIAMINE 100 MG/ML 2 ML VIAL IM STA (00:53)
[2022-08-03] MEDS: POTASSIUM CHLORIDE 10 MEQ in WATER FOR INJECTION 1 100ML.BAG IVPB SCH ×4 (02:00→06:29)
[2022-08-03 04:43] LABS: HCT 22.4 % (39.0-53.0); HGB 7.3 gm/dL (13.0-17.5); Hypochromasia Slight; MCH 39.3 pg (25.0-35.0); MCHC 32.6 g/dL (31.0-37.0); MCV 120.6 fL (80.0-100.0); Macrocytosis Marked; Mean Platelet Volume 8.7; Platelet Count 307 k/uL (150-450); RBC 1.86 m/uL (4.30-5.90); RDW 15.7 % (11.5-15.5); WBC 6.5 k/uL (3.8-10.6)
[2022-08-03 05:02] LABS: ALT 76 U/L (4-49); AST 281 U/L (17-59); African American GFR (CKD) >90 (>60 ml/min/1.73 sqM); Albumin 2.2 g/dL (3.5-5.0); Alkaline Phosphatase 317 U/L (38-126); Anion Gap 12 mmol/L; Blood Urea Nitrogen 9 mg/dL (9-20); Calcium 7.2 mg/dL (8.4-10.2); Carbon Dioxide 23 mmol/L (22-30); Chloride 94 mmol/L (98-107); Glucose 62 mg/dL (74-99); Non-African American GFR(CKD) >90 (>60 ml/min/1.73 sqM); Potassium 2.8 mmol/L (3.5-5.1); Sodium 129 mmol/L (137-145); Total Protein 5.2 g/dL (6.3-8.2)
[2022-08-03 05:18] LABS: Total Bilirubin 19.6 mg/dL (0.2-1.3)
[2022-08-03 06:33] LABS: Glucose,Whole Blood 97 mg/dL (70-110)
[2022-08-03] MEDS: SODIUM CHLORIDE 0.9% 1,000 ML IV SCH ×3 (07:10→14:56)
[2022-08-03] MEDS: FOLIC ACID 1 MG TAB PO SCH (08:46)
[2022-08-03] MEDS: MULTIVITAMINS, THERA 1 EACH TAB PO SCH (08:46)
[2022-08-03] MEDS: HEPARIN SODIUM,PORCINE/PF 5,000 UNIT/0.5 ML SYRINGE SQ SCH ×2 (08:47→14:59)
[2022-08-03] MEDS ORDERED: predniSONE 20 MG TAB PO SCH (09:00)
[2022-08-03] MEDS ORDERED: PANTOPRAZOLE 40 MG/10 ML VIAL IVP SCH (09:00)
[2022-08-03] MEDS: prednisoLONE ORAL SOLUTION 15MG/5ML CUP PO SCH (09:42)
[2022-08-03] MEDS: POTASSIUM CHLORIDE ER 20 MEQ TAB.ER PO SCH (12:21)
[2022-08-03 12:28] LABS: Glucose,Whole Blood 96 mg/dL (70-110)
[2022-08-03] MEDS ORDERED: POTASSIUM CHLORIDE ER 20 MEQ TAB.ER PO STA (12:30)
--- NOTE | 2022-08-03 12:32 | P.PN ---
Subjective Progress Note Date: 08/03/22 Principal diagnosis: altered mentation Hospital Course: 46-year-old male with past medical history of alcohol abuse presented for altered mental status. He is being admitted for alcoholic hepatitis, currently on steroids. Subjective: Patient seen and examined at bedside. No acute events overnight. Patient denies any chest pain, shortness of breath, abdominal pain. He claims that his last bowel movement was 4 days ago. Pertinent positives and negatives as discussed above, a complete review of systems was performed and all other systems are negative. Vitals Signs Reviewed. General: nontoxic, no distress, appears at stated age Derm: warm, dry, jaundice Head: atraumatic, normocephalic, symmetric Eyes: EOMI, no lid lag, scleral icterus Mouth: no lip lesion, mucus membranes moist Cardiovascular: S1S2 reg, no murmur Lungs: CTA bilateral, no rhonchi, no rales , no accessory muscle use Abdominal: soft, distended, nontender to palpation, no guarding, no appreciable organomegaly Ext: no gross muscle atrophy, no edema, no contractures Neuro: CN II-XI grossly intact, no focal neuro deficits Psych: Alert, oriented, appropriate affect Assessment and Plan: Acute liver failure Alcoholic hepatitis -Maddrey's score>32 -Change prednisone to prednisone -IV fluids -Monitor LFTs -Lactulose -Liver ultrasound, hepatitis panel pending Alcohol abuse with impending withdrawal -[facility] Protocol -Thiamine, multivitamin -Check B12 and folate levels -IV fluids -Monitor electrolytes -Fall, seizure, aspiration precautions Hypokalemia -Replace and monitor Hypovolemic hyponatremia -Likely due to poor oral intake -IV fluids Macrocytic anemia -Check B12 and folate levels -Likely due to ongoing EtOH abuse DVT prophylaxis -Heparin subcu Code status: Full code Anticipated discharge place: Home Anticipated discharge time: 2+days Objective - Vital Signs Vital signs: Vital Signs Temp 98.4 F 08/03/22 07:42 Pulse 74 08/03/22 09:50 Resp 18 08/03/22 09:50 BP 101/68 08/03/22 09:50 Pulse Ox 96 08/03/22 09:50 FiO2 Intake & Output 08/02/22 08/03/22 08/03/22 18:59 06:59 18:59 Weight 72.575 kg - Labs CBC & Chem 7: 08/03/22 04:32 08/03/22 04:32 Labs: Abnormal Lab Results - Last 24 Hours (Table) 08/02/22 08/02/22 08/02/22 Range/Units 17:00 17:00 17:00 RBC 1.89 L (4.30-5.90) m/uL Hgb 7.7 L (13.0-17.5) gm/dL Hct 22.5 L (39.0-53.0) % MCV 119.4 H (80.0-100.0) fL MCH 40.5 H (25.0-35.0) pg RDW 15.9 H (11.5-15.5) % Lymphocytes # 0.6 L (1.0-4.8) k/uL Macrocytosis Marked A PT 20.7 H (9.0-12.0) sec INR 2.1 H (<1.2) APTT 42.4 H (22.0-30.0) sec Sodium 126 L (137-145) mmol/L Potassium 2.9 L (3.5-5.1) mmol/L Chloride 90 L (98-107) mmol/L Carbon Dioxide 21 L (22-30) mmol/L Glucose 48 L* (74-99) mg/dL POC Glucose (mg/dL) (70-110) mg/dL Calcium 7.4 L (8.4-10.2) mg/dL Total Bilirubin 21.4 H* (0.2-1.3) mg/dL AST 331 H (17-59) U/L ALT 80 H (4-49) U/L Alkaline Phosphatase 371 H (38-126) U/L Ammonia (<30) umol/L Total Protein 5.9 L (6.3-8.2) g/dL Albumin 2.5 L (3.5-5.0) g/dL Urine Bilirubin (Negative) 08/02/22 08/02/22 08/02/22 Range/Units 17:00 18:34 21:30 RBC (4.30-5.90) m/uL Hgb (13.0-17.5) gm/dL Hct (39.0-53.0) % MCV (80.0-100.0) fL MCH (25.0-35.0) pg RDW (11.5-15.5) % Lymphocytes # (1.0-4.8) k/uL Macrocytosis PT (9.0-12.0) sec INR (<1.2) APTT (22.0-30.0) sec Sodium (137-145) mmol/L Potassium (3.5-5.1) mmol/L Chloride (98-107) mmol/L Carbon Dioxide (22-30) mmol/L Glucose (74-99) mg/dL POC Glucose (mg/dL) 160 H (70-110) mg/dL Calcium (8.4-10.2) mg/dL Total Bilirubin (0.2-1.3) mg/dL AST (17-59) U/L ALT (4-49) U/L Alkaline Phosphatase (38-126) U/L Ammonia 34 H (<30) umol/L Total Protein (6.3-8.2) g/dL Albumin (3.5-5.0) g/dL Urine Bilirubin 3+ H (Negative) 08/03/22 08/03/22 Range/Units 04:32 04:32 RBC 1.86 L (4.30-5.90) m/uL Hgb 7.3 L (13.0-17.5) gm/dL Hct 22.4 L (39.0-53.0) % MCV 120.6 H (80.0-100.0) fL MCH 39.3 H (25.0-35.0) pg RDW 15.7 H (11.5-15.5) % Lymphocytes # (1.0-4.8) k/uL Macrocytosis Marked A PT (9.0-12.0) sec INR (<1.2) APTT (22.0-30.0) sec Sodium 129 L (137-145) mmol/L Potassium 2.8 L (3.5-5.1) mmol/L Chloride 94 L (98-107) mmol/L Carbon Dioxide (22-30) mmol/L Glucose 62 L (74-99) mg/dL POC Glucose (mg/dL) (70-110) mg/dL Calcium 7.2 L (8.4-10.2) mg/dL Total Bilirubin 19.6 H* (0.2-1.3) mg/dL AST 281 H (17-59) U/L ALT 76 H (4-49) U/L Alkaline Phosphatase 317 H (38-126) U/L Ammonia (<30) umol/L Total Protein 5.2 L (6.3-8.2) g/dL Albumin 2.2 L (3.5-5.0) g/dL Urine Bilirubin (Negative)
[2022-08-03] MEDS: LACTULOSE 20 GM/30 ML CUP PO SCH ×3 (14:58→21:17)
--- NOTE | 2022-08-03 15:49 | US ---
EXAMINATION TYPE: US liver DATE OF EXAM: 08/03/2022 COMPARISON: NONE CLINICAL HISTORY 46-year-old male jaundice, hepatitis TECHNIQUE: Multiple sonographic images of the right upper quadrant are obtained. FINDINGS: EXAM MEASUREMENTS: Liver Length: 24.5 cm Gallbladder Wall: 0.6 cm CBD: 0.6 cm Right Kidney: 11.7 x 4.1 x 5.4 cm Pancreas: Suboptimal visualization of the pancreatic tail and head due to bowel gas shadowing. Visua lized body shows no gross abnormality. Liver: Enlarged and echogenic. No focal lesion seen. Mild perihepatic ascites. Gallbladder: thickened GB wall. No hydropic change, shadowing calculi, or surrounding fluid. Evidence for sonographic Bautista's sign: no CBD: upper limits of normal Right Kidney: no evidence of hydronephrosis IMPRESSION: 1. Marked hepatomegaly (24.5 cm) with severe hepatic steatosis. Correlate with LFTs, lipid profile, a nd patient risk factors. 2. Mild perihepatic ascites. 3. Gallbladder wall thickening is nonspecific and may be seen with third spacing or hepatitis. There are no gallstones or hydropic change to support acute cholecystitis. 4. Bile duct shows borderline caliber at 6 mm. This may be chronic for the patient. Correlate with al kaline phosphatase and bilirubin levels.
[2022-08-03 19:13] LABS: Hepatitis A Antibody IgM Nonreactive (Nonreactive); Hepatitis B Core IgM Nonreactive (Nonreactive); Hepatitis B Surface Antigen Nonreactive (Nonreactive); Hepatitis C IgG Antibody Nonreactive (Nonreactive)
[2022-08-03 20:24] LABS: Glucose,Whole Blood 147 mg/dL (70-110)
[2022-08-03] MEDS ORDERED: LORazepam 1 MG/0.5 ML VIAL IV PRN ×2 (20:26)
[2022-08-03] MEDS: LORazepam 1 MG/0.5 ML VIAL IV PRN (20:51)
[2022-08-04] MEDS: HEPARIN SODIUM,PORCINE/PF 5,000 UNIT/0.5 ML SYRINGE SQ SCH ×3 (00:40→15:58)
[2022-08-04] MEDS: LORazepam 1 MG/0.5 ML VIAL IV PRN (02:05)
[2022-08-04 05:52] LABS: Glucose,Whole Blood 140 mg/dL (70-110)
[2022-08-04] MEDS: SODIUM CHLORIDE 0.9% 1,000 ML IV SCH ×4 (06:43→15:54)
[2022-08-04] MEDS: THIAMINE 100 MG TAB PO SCH (08:43)
[2022-08-04] MEDS: FOLIC ACID 1 MG TAB PO SCH (08:43)
[2022-08-04] MEDS: PANTOPRAZOLE 40 MG TABLET PO SCH (08:43)
[2022-08-04] MEDS: POTASSIUM CHLORIDE ER 20 MEQ TAB.ER PO SCH (08:43)
[2022-08-04] MEDS: MULTIVITAMINS, THERA 1 EACH TAB PO SCH (08:43)
[2022-08-04] MEDS: LACTULOSE 20 GM/30 ML CUP PO SCH ×3 (08:44→21:50)
[2022-08-04 10:49] LABS: ALT 72 U/L (4-49); AST 244 U/L (17-59); African American GFR (CKD) >90 (>60 ml/min/1.73 sqM); Albumin 2.2 g/dL (3.5-5.0); Albumin/Globulin Ratio 0.7; Alkaline Phosphatase 324 U/L (38-126); Anion Gap 5 mmol/L; Blood Urea Nitrogen 8 mg/dL (9-20); Calcium 7.2 mg/dL (8.4-10.2); Carbon Dioxide 27 mmol/L (22-30); Chloride 100 mmol/L (98-107); Glucose 128 mg/dL (74-99); Non-African American GFR(CKD) >90 (>60 ml/min/1.73 sqM); Potassium 3.2 mmol/L (3.5-5.1); Sodium 132 mmol/L (137-145)
[2022-08-04 10:52] LABS: Total Bilirubin 19.6 mg/dL (0.2-1.3); Total Protein 5.2 g/dL (6.3-8.2)
[2022-08-04] MEDS: prednisoLONE ORAL SOLUTION 15MG/5ML CUP PO SCH (10:54)
[2022-08-04 11:22] LABS: Basophils % (A) 0 %; Eosinophils % (A) 0 %; HCT 23.4 % (39.0-53.0); HGB 7.8 gm/dL (13.0-17.5); Hypochromasia Marked; Lymphocytes # (A) 0.7 k/uL (1.0-4.8); Lymphocytes % (A) 12 %; MCH 40.8 pg (25.0-35.0); MCHC 33.2 g/dL (31.0-37.0); Macrocytosis Marked; Mean Platelet Volume 8.2; Monocytes # (A) 0.4 k/uL (0-1.0); Monocytes % (A) 7 %; Neutrophils # (A) 4.4 k/uL (1.3-7.7); Neutrophils % (A) 77 %; Platelet Count 351 k/uL (150-450); RDW 14.9 % (11.5-15.5); WBC 5.7 k/uL (3.8-10.6)
[2022-08-04] MEDS ORDERED: POTASSIUM CHLORIDE ER 20 MEQ TAB.ER PO STA (11:41)
--- NOTE | 2022-08-04 13:18 | P.PN ---
Subjective Progress Note Date: 08/04/22 Principal diagnosis: altered mentation Hospital Course: 46-year-old male with past medical history of alcohol abuse presented for altered mental status. He is being admitted for alcoholic hepatitis, currently on steroids. Also being treated for alcohol withdrawal. Subjective: Patient seen and examined at bedside. No acute events overnight. Patient denies any chest pain, shortness of breath, abdominal pain. He is currently having bowel movements. He received IV Ativan overnight. Pertinent positives and negatives as discussed above, a complete review of s ystems was performed and all other systems are negative. Vitals Signs Reviewed. General: nontoxic, no distress, appears at stated age Derm: warm, dry, jaundice Head: atraumatic, normocephalic, symmetric Eyes: EOMI, no lid lag, scleral icterus Mouth: no lip lesion, mucus membranes moist Cardiovascular: S1S2 reg, no murmur Lungs: CTA bilateral, no rhonchi, no rales , no accessory muscle use Abdominal: soft, distended, nontender to palpation, no guarding, no appreciable organomegaly Ext: no gross muscle atrophy, no edema, no contractures Neuro: CN II-XI grossly intact, no focal neuro deficits Psych: Alert, oriented, appropriate affect Assessment and Plan: Acute liver failure Alcoholic hepatitis -Maddrey's score>32 -on prednisolone -IV fluids -Monitor LFTs -Lactulose -Liver ultrasound - severe hepatic steatosis -Hepatitis panel negative Alcohol abuse Acute alcohol withdrawal -[facility] Protocol -Thiamine, multivitamin -IV fluids -Monitor electrolytes -Fall, seizure, aspiration precautions Hypokalemia -Replace and monitor Hypovolemic hyponatremia -Likely due to poor oral intake -IV fluids Macrocytic anemia -B12 levels normal, folic acid levels pending -Likely due to ongoing EtOH abuse DVT prophylaxis -Heparin subcu Code status: Full code Anticipated discharge place: Home Anticipated discharge time: 2+days, once out of alcohol withdrawal Objective - Vital Signs Vital signs: Vital Signs Temp 98.6 F 08/04/22 07:55 Pulse 91 08/04/22 07:55 Resp 15 08/04/22 07:55 BP 105/64 08/04/22 07:55 Pulse Ox 97 08/04/22 07:55 FiO2 Intake & Output 08/03/22 08/04/22 08/04/22 18:59 06:59 18:59 Intake Total 200 Output Total 200 600 Balance 0 -600 Weight 72.575 kg Intake: Intake, IV Titration 200 Amount Sodium Chloride 0.9% 1, 200 000 ml @ 75 mls/hr IV . [id number] [facility] [place] Rx#:[id number] Output: Urine 200 600 Other: # Voids 1 - Labs CBC & Chem 7: 08/04/22 10:22 08/04/22 10: Labs: Abnormal Lab Results - Last 24 Hours (Table) 08/03/22 08/03/22 08/04/22 Range/Units 04:32 20:20 05:50 RBC (4.30-5.90) m/uL Hgb (13.0-17.5) gm/dL Hct (39.0-53.0) % MCV (80.0-100.0) fL MCH (25.0-35.0) pg Lymphocytes # (1.0-4.8) k/uL Macrocytosis Sodium (137-145) mmol/L Potassium (3.5-5.1) mmol/L BUN (9-20) mg/dL Glucose (74-99) mg/dL POC Glucose (mg/dL) 147 H 140 H (70-110) mg/dL Calcium (8.4-10.2) mg/dL Total Bilirubin (0.2-1.3) mg/dL AST (17-59) U/L ALT (4-49) U/L Alkaline Phosphatase (38-126) U/L Total Protein (6.3-8.2) g/dL Albumin (3.5-5.0) g/dL Vitamin B12 >2000.0 H (200.0-944.0) pg/mL 08/04/22 08/04/22 Range/Units 10: 10:22 RBC 1.90 L (4.30-5.90) m/uL Hgb 7.8 L (13.0-17.5) gm/dL Hct 23.4 L (39.0-53.0) % MCV 123.0 H (80.0-100.0) fL MCH 40.8 H (25.0-35.0) pg Lymphocytes # 0.7 L (1.0-4.8) k/uL Macrocytosis Marked A Sodium 132 L (137-145) mmol/L Potassium 3.2 L (3.5-5.1) mmol/L BUN 8 L (9-20) mg/dL Glucose 128 H (74-99) mg/dL POC Glucose (mg/dL) (70-110) mg/dL Calcium 7.2 L (8.4-10.2) mg/dL Total Bilirubin 19.6 H* (0.2-1.3) mg/dL AST 244 H (17-59) U/L ALT 72 H (4-49) U/L Alkaline Phosphatase 324 H (38-126) U/L Total Protein 5.2 L (6.3-8.2) g/dL Albumin 2.2 L (3.5-5.0) g/dL Vitamin B12 (200.0-944.0) pg/mL Microbiology - Last 24 Hours (Table) 08/02/22 19:17 Blood Culture - Preliminary Blood No Growth after 24 hours
[2022-08-05] MEDS: HEPARIN SODIUM,PORCINE/PF 5,000 UNIT/0.5 ML SYRINGE SQ SCH ×3 (00:41→16:29)
[2022-08-05] MEDS: NICOTINE 14MG/24HR PATCH TRANSDERM SCH ×2 (01:43→07:49)
[2022-08-05] MEDS: SODIUM CHLORIDE 0.9% 1,000 ML IV SCH ×2 (03:16→09:20)
[2022-08-05] MEDS: POTASSIUM CHLORIDE ER 20 MEQ TAB.ER PO SCH (07:48)
[2022-08-05] MEDS: MULTIVITAMINS, THERA 1 EACH TAB PO SCH (07:48)
[2022-08-05] MEDS: LACTULOSE 20 GM/30 ML CUP PO SCH ×2 (07:48→16:30)
[2022-08-05] MEDS: PANTOPRAZOLE 40 MG TABLET PO SCH (07:48)
[2022-08-05] MEDS: FOLIC ACID 1 MG TAB PO SCH (07:49)
[2022-08-05] MEDS: THIAMINE 100 MG TAB PO SCH (07:49)
[2022-08-05 08:25] LABS: African American GFR (CKD) >90 (>60 ml/min/1.73 sqM); Anion Gap 9 mmol/L; Blood Urea Nitrogen 5 mg/dL (9-20); Calcium 7.5 mg/dL (8.4-10.2); Carbon Dioxide 23 mmol/L (22-30); Chloride 102 mmol/L (98-107); Glucose 95 mg/dL (74-99); Non-African American GFR(CKD) >90 (>60 ml/min/1.73 sqM); Potassium 3.5 mmol/L (3.5-5.1); Sodium 134 mmol/L (137-145)
[2022-08-05] MEDS: prednisoLONE ORAL SOLUTION 15MG/5ML CUP PO SCH (10:17)
--- NOTE | 2022-08-05 15:08 | P.DS ---
Providers Date of admission: 08/02/22 22:05 Expected date of discharge: 08/05/22 Attending physician: Sreedhar Olsen MD Primary care physician: Stated None Hospital Course: Discharge Diagnosis: Acute liver failure Alcoholic hepatitis Hepatic encephalopathy Alcohol abuse Acute alcohol withdrawal Hypokalemia Hypovolemic hyponatremia Macrocytic anemia Hospital Course: 46-year-old male with past medical history of alcohol abuse presented for altered mental status. His initial lab work showed hemoglobin of 7.7, MCV 119, PTT 20.7, INR 2.1, sodium 126, potassium 2.9, glucose 48, total bilirubin 21.4, AST 331, ALT 80, ALP 371. Alcoholic level was negative, urine tox screen was negative, UA was unremarkable. His calculated maddrey's score was greater than 32. Patient was started on prednisolone. He was also started on lactulose for hepatic encephalopathy. His electrolytes were repleted. He was given IV fluids. Liver ultrasound showed severe hepatic steatosis, hepatitis panel was negative. Patient was also maintained on CIWA protocol. Patient's mental status improved remarkably. Patient to continue steroids for a total duration of 28 days. Patient does not have a PCP, but will make an appointment with one. He also needs to see GI as an outpatient. Patient was strongly suggested against drinking alcohol. Risks of further alcohol use were discussed including worsening liver disease and . Patient claims that he will maintain sobriety. Patient seen and examined at bedside. Vital signs reviewed and stable. General: nontoxic, no distress, appears at stated age Derm: warm, dry, jaundice Head: atraumatic, normocephalic, symmetric Eyes: EOMI, no lid lag, scleral icterus Mouth: no lip lesion, mucus membranes moist Cardiovascular: S1S2 reg, no murmur Lungs: CTA bilateral, no rhonchi, no rales , no accessory muscle use Abdominal: soft, distended, nontender to palpation, no guarding, no appreciable organomegaly Ext: no gross muscle atrophy, no edema, no contractures Neuro: CN II-XI grossly intact, no focal neuro deficits Psych: Alert, oriented, appropriate affect A total of 39 minutes of time were spent preparing this complex discharge summary. Patient was discharged on 08/05/22 at 9:51. Patient Condition at Discharge: Stable Plan - Discharge Summary Discharge Rx Participant: Yes New Discharge Prescriptions: New Multivitamins, Thera [Multivitamin (formulary)] 1 each PO DAILY #30 tab prednisoLONE ORAL 15MG/5ML LUIS [Prelone] 40 mg PO DAILY 26 Days #350 ml Thiamine [Vitamin B-1] 100 mg PO DAILY #30 tab Lactulose [Cephulac] 10 gm PO TID #30 ml Folic Acid 1 mg PO DAILY #30 tab Pantoprazole [Protonix] 40 mg PO DAILY #30 tab Continue Potassium Chloride ER [K-Dur 20] 20 meq PO DAILY #14 tab Discharge Medication List Potassium Chloride ER [K-Dur 20] 20 meq PO DAILY #14 tab 08/01/22 [Rx] Folic Acid 1 mg PO DAILY #30 tab 08/05/22 [Rx] Lactulose [Cephulac] 10 gm PO TID #30 ml 08/05/22 [Rx] Multivitamins, Thera [Multivitamin (formulary)] 1 each PO DAILY #30 tab 08/05/22 [Rx] Pantoprazole [Protonix] 40 mg PO DAILY #30 tab 08/05/22 [Rx] Thiamine [Vitamin B-1] 100 mg PO DAILY #30 tab 08/05/22 [Rx] prednisoLONE ORAL 15MG/5ML LUIS [Prelone] 40 mg PO DAILY 26 Days #350 ml 08/05/22 [Rx] Follow up Appointment(s)/Referral(s): None,Stated [Primary Care Provider] - 1-2 days (Schedule appt with PCP after Discharge ) Patient Instructions/Handouts: Cirrhosis (DC) Activity/Diet/Wound Care/Special Instructions: Please make an appointment with PCP as soon as possible. You will also need a liver doctor in the future. Discharge Disposition: HOME SELF-CARE
[2022-08-05 15:58] VITALS: BP 120/61; PULSE 87; RESP 16; TEMP 98.1
== END 2022-08-05 18:02 | disposition home or self-care (01) | DRG 433 ==
LOC: EC 16:48 → 3SCARD 22:05 → 4SSUR 08-03 16:04
PROVIDERS: ADMIT Internal Medicine; ATTEND Internal Medicine
DX: K70.40 Alcoholic hepatic failure without coma (principal); E87.1 Hypo-osmolality and hyponatremia; F10.139 Alcohol abuse with withdrawal, unspecified; D52.0 Dietary folate deficiency anemia; I95.9 Hypotension, unspecified; J84.10 Pulmonary fibrosis, unspecified; F17.210 Nicotine dependence, cigarettes, uncomplicated; E16.2 Hypoglycemia, unspecified; E87.6 Hypokalemia; I49.3 Ventricular premature depolarization; Y90.0 Blood alcohol level of less than 20 mg/100 ml; E86.1 Hypovolemia; K70.0 Alcoholic fatty liver; Z91.048 Other nonmedicinal substance allergy status; Z28.310 Unvaccinated for COVID-19; Z79.52 Long term (current) use of systemic steroids; Z79.899 Other long term (current) drug therapy
CPT/HCPCS: 36415; 70450; 71045; 76705; 80048; 80053; 80074; 80306; 80320; 81003; 82140; 82607; 82747; 83735; 84484; 85025; 85027; 85610; 85730; 87040; 93005; 96361; 96365; 96366; 96372; 96375; 99285

== ENCOUNTER → 2022-10-10 | Outpatient (CLI) | payer OTHER ==
[2022-10-10 18:24] LABS: Basophils # (A) 0.02 X 10*3/uL (0.00-0.10); Basophils % (A) 0.3 %; Eosinophils % (A) 1.3 %; HCT 33.9 % (39.6-50.0); HGB 10.2 g/dL (13.0-17.0); Immature Grans, Automated 0.4 %; Lymphocytes # (A) 1.33 X 10*3/uL (0.90-5.00); Lymphocytes % (A) 17.9 %; MCH 27.6 pg (27.0-32.0); MCHC 30.1 g/dL (32.0-37.0); MCV 91.6 fL (80.0-97.0); Mean Platelet Volume 9.5 fL (9.5-12.2); Monocytes # (A) 0.61 X 10*3/uL (0.20-1.00); Monocytes % (A) 8.2 %; NRBC Per 100 WBC 0.3 /100 WBCS (0.0-0.0); Neutrophils # (A) 5.33 X 10*3/uL (1.80-7.70); Neutrophils % (A) 71.9 %; Platelet Count 394 X 10*3/uL (140-440); RDW 18.5 % (11.5-14.5); WBC 7.42 X 10*3/uL (4.50-10.00)
[2022-10-10 19:10] LABS: African American GFR (CKD) 112.9 (60.0-200.0); Albumin 3.5 g/dL (3.8-4.9); Albumin/Globulin Ratio 0.85 (1.60-3.17); Anion Gap 11.9 mmol/L (10.00-18.00); BUN/Creat Ratio 8.97 Ratio (12.00-20.00); Blood Urea Nitrogen 8.4 mg/dL (9.0-27.0); Calcium 9.6 mg/dL (8.7-10.3); Carbon Dioxide 27.1 mmol/L (20.0-27.5); Globulin 4.1 g/dL (1.6-3.3); Non-African American GFR(CKD) 97.4 (60.0-200.0); Potassium 3.8 mmol/L (3.5-5.5); Total Protein 7.5 g/dL (6.2-8.2)
[2022-10-10 19:15] LABS: INR 0.9 (0.90-1.11); Prothrombin Time 10.2 sec (9.9-11.9)
[2022-10-10 19:16] LABS: Hepatitis B Surface Antigen Nonreactive (Nonreactive); Hepatitis C IgG Antibody Nonreactive (Nonreactive)
[2022-10-10 19:23] LABS: Hepatitis B Surface AB- Quant 3.5 mIU/mL; Hepatitis B Surface Antibody Nonreactive (Nonreactive)
[2022-10-10 19:39] LABS: Ceruloplasmin 28.3 mg/dL (20.0-60.0)
== END | disposition home or self-care (01) ==
LOC: LABWHC1 13:50
PROVIDERS: ATTEND Internal Medicine Gastroenterology
DX: K70.11 Alcoholic hepatitis with ascites (principal); F10.988 Alcohol use, unspecified with other alcohol-induced disorder
CPT/HCPCS: 36415; 80053; 82103; 82390; 85025; 85610; 86704; 86706; 86708; 86803; 87340